=== PATIENT | male | born 1940 | race Caucasian/White ===

== ENCOUNTER 2022-05-04 12:37 | Inpatient (IN) | payer OTHER ==
[~2022-05-04] VITALS: Ht 177.8 cm; Wt 87.2 kg
[2022-05-04 13:44] LABS: Basophils # (auto) 0.1 10 ^3/uL (0-0.2); Basophils % (auto) 0.9 % (0.0-2.0); Eosinophils # (auto) 0.3 10 ^3/uL (0-0.8); Eosinophils % (auto) 4.6 % (0.0-7.0); Hematocrit 41.2 % (41.0-53.0); Hemoglobin 13.7 g/dL (13.5-17.5); Lymphocytes # (auto) 0.8 10 ^3/uL (0.4-5.4); Lymphocytes % (auto) 13.5 % (10.0-50.0); Mean Corpuscular Hemoglobin 33.4 pg (28.0-32.0); Mean Corpuscular Hgb Conc. 33.3 g/dL (32.0-36.0); Mean Corpuscular Volume 100.2 fL (80.0-100.0); Monocytes # (auto) 0.5 10 ^3/uL (0-1.3); Monocytes % (auto) 8.8 % (0.0-12.0); Neutrophils # (auto) 4.1 10 ^3/uL (1.6-8.6); Neutrophils % (auto) 72.2 % (37.0-80.0); Nucleated Red Blood Cells % 0.3 %; Red Blood Cells 4.11 10^6/uL (4.5-5.90); Red Cell Distribution Width 15.7 % (11.8-14.3); White Blood Cell 5.7 10^3/uL (4.4-10.8)
[2022-05-04 13:45] LABS: Urine Bacteria NONE SEEN /hpf (None Seen); Urine Blood Negative /uL (Negative); Urine Hyaline Cast MOD /lpf (0 - 2); Urine Mucus FEW (None Seen); Urine Specific Gravity 1.018 (1.001-1.035); Urine WBC 4 /hpf (0 - 3)
[2022-05-04 13:57] LABS: Albumin 2.9 g/dL (3.4-5.0); Calcium 8.4 mg/dL (8.5-10.1); Potassium 4.5 mmol/L (3.5-5.1)
[2022-05-04 13:59] LABS: Bilirubin, Total 1.3 mg/dL (0.2-1.0); Total Protein 7.6 g/dL (6.4-8.2)
[2022-05-04] MEDS ORDERED: ACETAMINOPHEN 325 MG TAB PO PRN (19:30)
[2022-05-04] MEDS ORDERED: PANTOPRAZOLE 40 MG/10 ML VIAL INJ IV ONE (20:00)
[2022-05-04] MEDS ORDERED: FUROSEMIDE 20 MG/2 ML VIAL IV ONE (20:00)
[2022-05-04 20:18] LABS: INR 1.38 (0.9-1.15)
[2022-05-05] VITALS (7 sets, daily range): BP systolic 100–136; BP diastolic 55–87
[2022-05-05 07:52] LABS: Basophils # (auto) 0 10 ^3/uL (0-0.2); Basophils % (auto) 0.9 % (0.0-2.0); Eosinophils # (auto) 0.3 10 ^3/uL (0-0.8); Eosinophils % (auto) 5.7 % (0.0-7.0); Hematocrit 37.4 % (41.0-53.0); Hemoglobin 12.3 g/dL (13.5-17.5); Lymphocytes # (auto) 0.7 10 ^3/uL (0.4-5.4); Lymphocytes % (auto) 14.2 % (10.0-50.0); Mean Corpuscular Hgb Conc. 32.9 g/dL (32.0-36.0); Mean Corpuscular Volume 100.2 fL (80.0-100.0); Monocytes # (auto) 0.7 10 ^3/uL (0-1.3); Monocytes % (auto) 13.3 % (0.0-12.0); Neutrophils # (auto) 3.3 10 ^3/uL (1.6-8.6); Neutrophils % (auto) 65.9 % (37.0-80.0); Nucleated Red Blood Cells % 0.1 %; Red Blood Cells 3.73 10^6/uL (4.5-5.90); Red Cell Distribution Width 15.3 % (11.8-14.3)
[2022-05-05 07:53] LABS: Albumin 2.3 g/dL (3.4-5.0); Potassium 4.6 mmol/L (3.5-5.1)
[2022-05-05 07:57] LABS: BUN/Creatinine Ratio 11.9; Bilirubin, Total 1.4 mg/dL (0.2-1.0); Total Protein 5.9 g/dL (6.4-8.2)
[2022-05-05] MEDS: FUROSEMIDE 20 MG/2 ML VIAL IV SCH (09:17)
[2022-05-05] MEDS: ENOXAPARIN SOD 40 MG/0.4 ML SYRINGE SC SCH (09:17)
[2022-05-05] MEDS ORDERED: ENOXAPARIN SOD 40 MG/0.4 ML SYRINGE SC SCH (10:00)
[2022-05-05] MEDS ORDERED: PANTOPRAZOLE 40 MG/10 ML VIAL INJ IV SCH (10:00)
[2022-05-05 12:49] LABS: Blood Alcohol < 3.0 mg/dL (0-5); Cholesterol 132 mg/dL (< 200)
[2022-05-05 12:52] LABS: HDL Cholesterol 40 mg/dL (40-59); LDL Cholesterol 90 mg/dL (< 100); Triglycerides 60 mg/dL (< 150)
[2022-05-05 13:02] LABS: Alcohol, Urine < 3.0 mg/dL (0-10); Amphetamine Screen, Urine NEGATIVE (NEGATIVE); Barbiturate Scree,Urine NEGATIVE (NEGATIVE); Benzodiazephine Screen, Urine NEGATIVE (NEGATIVE); Cannabinoid Screen, Urine NEGATIVE (NEGATIVE); Cocaine Screen, Urine NEGATIVE (NEGATIVE); Opiate Scree,Urine NEGATIVE (NEGATIVE); Phencyclidine Screen, Urine NEGATIVE (NEGATIVE)
[2022-05-05] MEDS: SPIRONOLACTONE 25 MG TAB PO SCH (21:50)
[2022-05-06 04:30] VITALS: BP 132/78
[2022-05-06 06:12] LABS: BUN/Creatinine Ratio 12.4; Calcium 8.3 mg/dL (8.5-10.1); Potassium 4.5 mmol/L (3.5-5.1)
[2022-05-06] MEDS: FUROSEMIDE 20 MG/2 ML VIAL IV SCH (08:59)
[2022-05-06] MEDS: ENOXAPARIN SOD 40 MG/0.4 ML SYRINGE SC SCH (08:59)
[2022-05-06 09:06] VITALS: BP 102/56
[2022-05-06 09:25] LABS: Hepatitis B Surface Antibody Negative (Negative)
[2022-05-06 09:52] LABS: Hepatitis A Total Antibody Positive (Negative)
[2022-05-06] MEDS ORDERED: PANTOPRAZOLE 40 MG TAB PO SCH (10:00)
[2022-05-06 11:42] LABS: Hepatitis C Antibody Negative (Negative)
[2022-05-06 11:44] LABS: Hepatitis A Ab IgM Negative; Hepatitis B Core IgM Negative; Hepatitis C Antibody Negative (Negative)
[2022-05-06] MEDS: SPIRONOLACTONE 25 MG TAB PO SCH (12:07)
[2022-05-06] MEDS ORDERED: HYDROcodone-ACET 5/325MG TAB PO PRN (12:15)
[2022-05-06] MEDS ORDERED: SPIR25TA8 PO (12:19)
[2022-05-06 12:51] VITALS: BP 107/57
[2022-05-06] MEDS ORDERED: ALBUMIN 25% 100 ML IV ONE (13:15)
[2022-05-06 16:42] VITALS: BP 114/63
[2022-05-06 17:00] VITALS: BP 109/68
== END 2022-05-06 18:25 | disposition home or self-care (01) | DRG 433 ==
LOC: ER 12:37 → EDBD 12:37 → OVERFLOW 19:32 → WEST WING 05-05 04:48
PROVIDERS: ADMIT Nurse Practitioner Family; ATTEND Hospitalist
PROC: 0W9G3ZZ Drainage of Peritoneal Cavity, Percutaneous Approach (ICD-10-PCS; principal; 2022-05-04)
DX: K74.60 Unspecified cirrhosis of liver (principal); R18.8 Other ascites; M19.90 Unspecified osteoarthritis, unspecified site; E07.9 Disorder of thyroid, unspecified; I10 Essential (primary) hypertension; Z20.822 Contact with and (suspected) exposure to COVID-19
CPT/HCPCS: 36415; 71045; 74176; 76705; 80048; 80053; 80061; 80074; 80307; 80320; 81001; 82105; 82728; 83036; 83880; 84443; 85025; 85610; 86038; 86704; 86706; 86708; 86803; 87205; 87340; 87426; 89051; 93005; 93306; 93970; 96374; 96375; 97163; C9113; G0378